=== PATIENT | male | born 1955 | race Caucasian/White ===

== ENCOUNTER 2019-05-15 00:31 | Emergency (ER) | payer SELFPAY ==
--- NOTE | 2019-05-15 01:14 | EDM.PDOC ---
ED HPI GENERAL MEDICAL PROBLEM - General Chief Complaint: General Stated Complaint: LEFT HAND PAIN, NUMBNESS Time Seen by Provider: 05/15/19 01:04 Source of Information: Reports: Patient History Limitations: Reports: No Limitations - History of Present Illness INITIAL COMMENTS - FREE TEXT/NARRATIVE: pt has been running a caulking gun all day. He now has numbness in his left hand in the thumb 2nd and third finger. He states he was having severe pain but the pain has let up some. He has a acute over use syndrome in a carpal tunnel pattern. Onset: Today Duration: Hour(s): Location: Reports: Upper Extremity, Left Associated Symptoms: Reports: No Other Symptoms Left Arm Pain Score (Numeric/FACES): 8 - Related Data Allergies Allergy/AdvReac Type Severity Reaction Status Date / Time No Known Allergies Allergy Verified 05/15/19 00:55 Home Meds: Home Meds NK [No Known Home Meds] 05/15/19 [History] Past Medical History - Infectious Disease History Infectious Disease History: Reports: Chicken Pox, Mumps Social & Family History - Family History Family Medical History: Noncontributory - Tobacco Use Smoking Status *Q: Current Every Day Smoker Years of Tobacco use: 30 Packs/Tins Daily: 0.5 - Caffeine Use Caffeine Use: Reports: Coffee - Recreational Drug Use Recreational Drug Use: No ED ROS GENERAL - Review of Systems Review Of Systems: See Below Constitutional: Reports: No Symptoms HEENT: Reports: No Symptoms Respiratory: Reports: No Symptoms Cardiovascular: Reports: No Symptoms Endocrine: Reports: No Symptoms GI/Abdominal: Reports: No Symptoms : Reports: No Symptoms Musculoskeletal: Reports: Other ( Pt has chronic knee and hip pain) Skin: Reports: No Symptoms Neurological: Reports: No Symptoms ED EXAM, GENERAL - Physical Exam Exam: See Below Free Text/Narrative:: pt arrived with pain in the left hand and arm. He has numbness in the thumb 2nd and third finger. He has been running a caulking gun all day. Exam Limited By: No Limitations General Appearance: Alert, Moderate Distress Ears: Normal TMs Nose: Normal Inspection Extremities: Other (pt has a normal pulse. He has stiffness in his fingers. He has numbness in the thumb 2nd and third fingers. ) Neurological: Alert, Oriented, Normal Cognition Course - Vital Signs Last Recorded V/S: Last Vital Signs Temp 36.8 C 05/15/19 00:57 Pulse 91 05/15/19 00:57 Resp 18 05/15/19 00:57 BP 142/86 H 05/15/19 01:04 Pulse Ox 97 05/15/19 00:57 - Orders/Labs/Meds Meds: Medications Discontinued Medications Generic Name Dose Route Start Last Admin Trade Name Santinoq PRN Reason Stop Dose Admin Ibuprofen 600 mg 05/15/19 01:23 05/15/19 01:28 Motrin PO 05/15/19 01:24 600 mg ONETIME ONE Administration Oxycodone/Acetaminophen 1 tab 05/15/19 01:23 05/15/19 01:28 Percocet 325-5 Mg PO 05/15/19 01:24 1 tab ONETIME ONE Administration - Re-Assessments/Exams Free Text/Narrative Re-Assessment/Exam: 05/15/19 01:33 pt was given a short arm velcroe cock up splint, percocet 5/325 and motrin 600mg . Pt has a acute carpal tunnel type pattern. He had a overuse type issue. 05/16/19 07:56 Departure - Departure Time of Disposition: 01:22 Disposition: Home, Self-Care 01 Condition: Fair Clinical Impression: Overuse syndrome of hand - Discharge Information Instructions: Carpal Tunnel Syndrome, Pusx-ey-Imeg Referrals: PCP,None [Primary Care Provider] - Forms: ED Department Discharge Care Plan Goals: soa k in warm water do range of motion and follow with a cool pack, short arm splint particularly wear at nite. motrin 600mg tid with food, norco 5/325 q6h prn for pain #6
[2019-05-15] MEDS ORDERED: Acetaminophen/oxyCODONE 325-5 MG Tab PO ONE (01:23)
[2019-05-15] MEDS ORDERED: Ibuprofen 600 MG Tab PO ONE (01:23)
== END 2019-05-15 01:52 | disposition home or self-care (01) ==
LOC: JP.ED 00:31
DX: M70.842 Other soft tissue disorders related to use, overuse and pressure, left hand (principal); F17.210 Nicotine dependence, cigarettes, uncomplicated
CPT/HCPCS: 99283; A9270